=== PATIENT | female | born 1985 | race Caucasian/White ===

== ENCOUNTER 2017-04-20 07:55 | Day surgery (SDC) | payer MEDICAID ==
[2017-04-19 10:26] VITALS: BMI 36.6
[2017-04-20] VITALS (10 sets, daily range): BP systolic 98–119; BP diastolic 64–83; PULSE 74–86; RESP 16–22; Ht 154.9 cm; Wt 88.0 kg
[~2017-04-20] VITALS: Ht 154.9 cm; Wt 88.0 kg
[~2017-04-20 07:55] MED LIST: BUPIVACAINE 0.5%/EPI (SDV) 30 ML INJ INJ ONE; CEFAZOLIN 2 GM/50 ML (PMX) 50 ML IVPB SCH; LACTATED RINGER'S 1,000 ML IV* SCH
[2017-04-20] MEDS ORDERED: BUPIVACAINE 0.5%/EPI (SDV) 30 ML INJ ONE (08:18)
[2017-04-20] MEDS ORDERED: ROCURONIUM 50 MG INJ ONE (08:19)
[2017-04-20] MEDS ORDERED: PROPOFOL 20 ML ONE (08:19)
[2017-04-20] MEDS ORDERED: FENTAnyl 50 MCG/ML VIAL ONE (08:19)
[2017-04-20] MEDS ORDERED: KETOROLAC 30 MG INJ ONE (08:21)
[2017-04-20] MEDS ORDERED: DEXAMETHASONE 4 MG/ML 1 ML INJ ONE (08:21)
[2017-04-20] MEDS ORDERED: CEFAZOLIN 1 GM INJ ONE (08:21)
[2017-04-20] MEDS ORDERED: SUGAMMADEX SODIUM 200 MG/2 ML VIAL IV ONE (08:21)
[2017-04-20] MEDS ORDERED: ONDANSETRON 4 MG INJ ONE (08:21)
[2017-04-20] MEDS ORDERED: METOCLOPRAMIDE 10 MG INJ ONE (08:21)
--- NOTE | 2017-04-20 08:24 | HP ---
Date/Time of Note Date/Time of Note DATE: 04/20/17 TIME: 08:22 Assessment/Plan VTE Prophylaxis VTE Prophylaxis Intervention: SCD's HPI/ROS Admit Date/Time Admit Date/Time 04/20/2017 Hx of Present Illness patient is requesting permanent sterilization. Risks and benefits and indications and alternatives discussed patients. risks including but not limited to infection, bleeding, damage to other organs such as intestines or bladder, blood transfusion and possibility of failure of procedure discussed with patient. I also explained to her this procedures is permanent and not reversible. other reversible contraceptive methods also discussed with patient. patient also told that our plan is Laparoscopic BTL, but some times the surgery may be converted to Exploratory Laparotomy. Informed consent obtained Allergies: NKDA Medications: none ROS: Significant as above Review of Systems: Constitutional: Denies nausea, vomiting, Fever, Chills, weight loss Eyes: denies pain, discharge or redness Nose: denies pain or bleeding Respiratory: denies SOB, cough or wheezing Cardiovascular: denies chest pain, palpitations or lightheadedness Gastrointestinal: Denies nausea, vomiting, blood in stool Genitourinary: Denies hematuria, dysuria, or flank pain Musculoskeletal: Denies joint pain or swelling Skin: Denies rash, erythema or laceration Neuro: Denies confusion, seizure, headache or dizziness Endocrine: Denies excessive urination or drinking Past Medical History: none Past Surgical History: Appendectomy and cholecystectomy Physical Exam: Afebrile, VSS NAD A&O Heart: RRR Lung: CTA B Abdomen: Soft, Not tender Extremities: No edema Assessment: Patients desires permanent sterilization Plan: Laparoscopic BTL, Possible Exploratory Laparotomy. Exam/Review of Systems Medications Medications Current Medications Lactated Ringer's 1,000 ml @ 125 mls/hr Q8H IV* ; Start 04/20/17 at 06:00; Stop 04/20/17 at 13:59 Cefazolin Sodium/ Dextrose (Ancef 2 Gm/50 ml (Pmx)) 50 ml @ 100 mls/hr PREOP IVPB ; Start 04/20/17 at 06:00; Stop 04/20/17 at 16:00 LARON ROWLEY MD Apr 20, 2017 08:24
[2017-04-20 08:26] LABS: BASOPHILS % 0.4 % (0.0-2.0); EOSINOPHILS # 0.1 10^3/ul (0.0-0.5); EOSINOPHILS % 1.3 % (0.0-7.0); HEMATOCRIT 38.9 % (37.0-47.0); HEMOGLOBIN 13.7 g/dl (12.0-16.0); LYMPHOCYTES # 4.1 10^3/ul (0.8-2.9); LYMPHOCYTES % 39.5 % (15.0-51.0); MEAN CORPUSCULAR HEMOGLOBIN 29.2 pg (29.0-33.0); MEAN CORPUSCULAR HGB CONC 35.2 g/dl (32.0-37.0); MEAN CORPUSCULAR VOLUME 82.9 fl (82.0-101.0); MONOCYTE # 0.7 10^3/ul (0.3-0.9); MONOCYTES % 6.3 % (0.0-11.0); NEUTROPHIL # 5.5 10^3/ul (1.6-7.5); NEUTROPHILS % 52.2 % (39.0-77.0); PLATELET COUNT 264 10^3/UL (140-415); RED BLOOD COUNT 4.69 10^6/ul (4.20-5.40); WHITE BLOOD COUNT 10.5 10^3/ul (4.8-10.8)
[2017-04-20] MEDS ORDERED: morphine (1 MG/ML) 10ML SYRINGE IV PRN ×3 (08:30)
[2017-04-20] MEDS ORDERED: DIPHENHYDRAMINE 50 MG INJ IV PRN (08:30)
[2017-04-20] MEDS ORDERED: FENTAnyl 50 MCG/ML VIAL IV PRN ×3 (08:30)
[2017-04-20] MEDS ORDERED: MEPERIDINE 25 MG INJ IV PRN (08:30)
[2017-04-20] MEDS ORDERED: EPHEDrine SULFATE 50 MG/5 ML SYG IV PRN (08:30)
[2017-04-20] MEDS ORDERED: ONDANSETRON 4 MG INJ IV PRN (08:30)
--- NOTE | 2017-04-20 08:56 | OPR ---
Date/Time of Note Date/Time of Note DATE: 04/20/17 TIME: 08:54 Operative Report Free Text/Dictation DATE OF OPERATION: 04/20/2017 PREOPERATIVE DIAGNOSIS: Patient desires permanent sterilization. She declined Essure. She desires laparoscopic tubal fulguration. POSTOPERATIVE DIAGNOSIS: Patient desires permanent sterilization. She declined Essure. She desires laparoscopic tubal fulguration. OPERATION PERFORMED: Laparoscopic fulguration and transection of bilateral tubes. SURGEON: Minal Tavarez MD ESTIMATED BLOOD LOSS: Minimal. COMPLICATIONS: None. FINDINGS: Normal tubes, ovaries bilaterally. Normal uterus. CONSENT: Please see my preop H and P consent in the office for the consent process. DESCRIPTION OF PROCEDURE: She was taken to operating room and general anesthesia was induced. She was prepped and draped in the usual sterile fashion in dorsal lithotomy position. Surgical time-out was done. Anterior lip of the cervix was grasped using a single-tooth tenaculum, and a HUMI was inserted in normal fashion. The tenaculum was removed. There was no bleeding from the cervix. The patient already had a Gupta catheter as well. Gloves were changed. A 5 mm incision was developed inside the umbilicus. A blunt trocar was inserted in the normal fashion. Intraperitoneal position was confirmed using the laparoscope. Pneumoperitoneum was obtained. The patient was placed in Trendelenburg position. A second trocar was inserted under direct visualization of the laparoscope at the pubic hairline in the midline. A 5 cm midampullary region of the right tube was coagulated. Complete desiccation of the entire diameter of tube was visualized. The middle of the coagulated portion was cut. There was no bleeding. Same procedure was done on the contralateral side. All instruments removed under direct visualization of the laparoscope after pneumoperitoneum was released. There was no bleeding. Skin closed using 4-0 Monocryl. Then 10 mL 0.25% Marcaine with epinephrine was injected at the incision sites. HUMI was removed. There was no bleeding from the vagina. Patient tolerated the procedure well. Preoperative Diagnosis Patient desires permanent sterilization. Postoperative Diagnosis Patient desires permanent sterilization. Operation/Procedure Performed LS BTL Surgeon see signature line Cadastral Surveyor none Anesthesia Type: general Estimated Blood Loss: minimal Transfusion none Specimen none Grafts/Implants none Tubes/Drains none Complications none Procedure Description as above MINAL TAVAREZ MD Apr 20, 2017 08:56
== END 2017-04-20 10:29 | disposition home or self-care (01) ==
LOC: SDS 07:55 → SUR 07:55
PROVIDERS: ATTEND Specialist
DX: Z30.2 Encounter for sterilization (principal)
CPT/HCPCS: 58670; 84703; 85025; J0690; J1100; J1885; J2270; J2405; J2765; J3010; Z7512; Z7610